=== PATIENT | female | born 1990 | race Caucasian/White ===

== ENCOUNTER 2017-07-05 15:46 | Emergency (ER) | payer OTHER, MEDICAID ==
[~2017-07-05] VITALS: Ht 167.6 cm; Wt 76.2 kg
[2017-07-05 15:53] VITALS: BP_SYST 113
[2017-07-05] MEDS ORDERED: ACETAMINOPHEN 500 MG TABLET PO ONE (16:15)
[2017-07-05 16:38] LABS: BASOPHILS % (AUTO) 0.4 % (0.0-2.0); EOSINOPHILS # (AUTO) 0.1 K/uL (0.0-0.4); EOSINOPHILS % (AUTO) 1.8 % (0.0-4.0); HEMOGLOBIN 12.2 g/dL (12.0-16.0); LYMPHOCYTES # (AUTO) 1.5 K/uL (1.0-5.5); LYMPHOCYTES % (AUTO) 18.7 % (20.5-51.5); MEAN CORPUSCULAR HEMOGLOBIN 31 pg (27-31); MEAN CORPUSCULAR HGB CONC 35 % (32-36); MEAN CORPUSCULAR VOLUME 88 fL (79.0-98.0); MONOCYTES # (AUTO) 0.4 K/uL (0.0-1.0); MONOCYTES % (AUTO) 5.5 % (1.7-9.3); NEUTROPHILS # (AUTO) 5.9 K/uL (1.8-7.7); NEUTROPHILS % (AUTO) 73.6 % (40.0-70.0); PLATELET COUNT (AUTO) 170 K/uL (130-430); RED BLOOD CELL COUNT(AUTO) 3.98 MIL/uL (4.2-6.2); RED CELL DISTRIBUTION WIDTH 13.5 % (9.0-15.0); WHITE BLOOD COUNT (AUTO) 7.9 K/uL (4.8-10.8)
[2017-07-05] MEDS ORDERED: NACL 0.9% 1,000 ML IV ONE (16:45)
[2017-07-05 16:49] LABS: CALCIUM 8.8 mg/dL (8.4-11.0); CREATININE 0.36 mg/dL (0.55-1.30); POTASSIUM 3.5 mmol/L (3.5-5.1)
[2017-07-05 17:15] LABS: ALBUMIN 2.9 g/dL (3.4-4.8); TOTAL BILIRUBIN 0.3 mg/dL (0.0-1.0)
[2017-07-05 18:02] VITALS: BP_SYST 115
== END 2017-07-05 18:02 | disposition home or self-care (01) ==
LOC: SED 15:46
DX: O26.892 Other specified pregnancy related conditions, second trimester (principal); M54.5 Low back pain; R10.30 Lower abdominal pain, unspecified; R03.0 Elevated blood-pressure reading, without diagnosis of hypertension; Z3A.16 16 weeks gestation of pregnancy; Z90.49 Acquired absence of other specified parts of digestive tract
CPT/HCPCS: 36415; 76815; 80053; 84702; 85025; 86900; 86901; 96360; 99285; J7030